=== PATIENT | male | born 1985 | race Two or more races ===

== ENCOUNTER 2024-04-23 09:08 | Inpatient (IN) | payer OTHER ==
[~2024-04-23] VITALS: Ht 177.8 cm; Wt 86.2 kg
--- NOTE | 2024-04-23 09:16 | NUR ---
SE RECIBE MASCULINO ALERTA Y ORIENTADO X3 EN AMBULANCIA. PARAMEDICOS REFIEREN FUERON ACTIVADOS DEBIDO A QUE PACIENTE ESTABA "DESORIENTADO" Y "SUDOROSO". AL MOMENTO PACIENTE VOMITANDO. SE MIDEN S/V Y SE UBICA.
[2024-04-23] MEDS ORDERED: 0.9 % SODIUM CHLORIDE 1,000 ML IV STA (09:30)
[2024-04-23] MEDS ORDERED: FAMOtidine 10 MG/ML (4ML VIAL) IV STA (09:30)
[2024-04-23] MEDS ORDERED: ONDANSETRON HCL 2 MG/ML VIAL IV ONE ×2 (09:30→17:30)
--- NOTE | 2024-04-23 09:59 | NUR ---
SE RECIBE PTE ALERTA ORIENTADA X3.SE EDGAR MUESTRAS DE LABORATORIO USANDO MEDIDAS ASEPTICAS.SE ADMINISTRAN MEDICAMENTOS GAVI ORDEN MEDICA.SE ORIENTA PTE SOBRE OBJETIVO DE [place] MEDICO.PTE MANEJADA POR SIMONA BRUCE.
[2024-04-23 10:09] LABS: HEMOGLOBIN 14.7 g/dL (13-16.00); MEAN CELL VOLUME 91.2 fL (80.0-100.00); MEAN CORPUSCULAR HEMOGLOBIN 31.1 pg (27.00-32.0); MEAN CORPUSCULAR HGB CONC 34.1 g/dl (32.0-36.0); PLATELET COUNT 227 K/uL (150-450); RED BLOOD COUNT 4.72 M/uL (4.00-6.00); RED CELL DISTRIBUTION WIDTH 13.7 % (11.5-14.5)
[2024-04-23 10:30] LABS: ALBUMIN 4.3 gm/dL (3.4-5.0); BILIRUBIN TOTAL 0.44 mg/dL (0.3-1.2); BILIRUBIN,CONJUGATED 0.14 mg/dL (0.0-0.2); BILIRUBIN,UNCONJUGATED 0.3 mg/dL (0.0-0.6); CALCIUM 8.7 mg/dL (8.5-10.1); CREATININE SERUM 0.94 mg/dL (0.70-1.30); GFR 89.34; POTASSIUM 3.36 mEq/L (3.5-5.1); TOTAL PROTEIN 7.4 gm/dL (6.4-8.2)
[2024-04-23] MEDS ORDERED: PROMETHAZINE HCL 50 MG/ML AMPUL IM ONE (11:00)
--- NOTE | 2024-04-23 13:40 | NUR ---
SE RECIBE PTE DESDE EL AREA DE OBSERVACION INCONCIENTE,CON RESPIRACIONES ABDOMINALES Y CIANOSIS EN SUKHI Y BOCA,SECRESIONES,SE CONECTA A MONITOR CARDIACO Y OXIMETRIA,SE SUCCIONA,SE LE CANALIZA Y SE ADMINISTRAN MEDICAMENTOS GAVI ORDEN MEDICA.SE INSERTA LYCNH,ORINA CON SEDIMENTACION.PTE REACCIONA LUEGO DE ADMINISTRAR NARCAN.SE COLOCA CANULA NASAL @ 3LTS.SE RESTRINGE X4,PTE COMBATIVO Y DESORIENTADO.PENDIENTE A REALIZARSE CT.
[2024-04-23] MEDS ORDERED: NALOXONE HCL 0.4 MG/ML AMPUL IV STA (13:47)
[2024-04-23] MEDS ORDERED: FLUMAZENIL 0.5 MG/5 ML ML IV STA (13:47)
[2024-04-23] MEDS ORDERED: LORazepam 2 MG/ML VIAL IV STA (13:48)
[2024-04-23 13:51] LABS: URINE APPEARANCE Turbid; URINE BILIRRUBIN Negative (NEGATIVE); URINE BLOOD Negative; URINE COLOR Yellow; URINE GLUCOSE Negative (NEGATIVE); URINE KETONE 15 (NEGATIVE); URINE LEUKOCYTE Negative; URINE NITRATE Negative; URINE PROTEIN Trace (NEGATIVE); URINE UROBILINOGEN 0.2 E.U./dl
[2024-04-23 13:54] LABS: URINE BACTERIA 64.2 uL (0.0-1933); URINE EPITHELIAL CELLS 2.7 uL (0.0-38.8); URINE WBC 7.4 uL (0.0-23.2)
[2024-04-23 14:13] LABS: ABG PH 7.291 (7.35-7.45); ABG PO2 123.1 mmHg (80-100); ABG pCO2 35.5 mmHg (35-45); BASE EXCESS -8.9 mmol/l; BICARBONATE 16.8 mmol/l (23-25); SaO2 98.1 %; Tco2 17.8 mmol/l
[2024-04-23 14:14] LABS: allen test SATISFACTORY; o2 32 %; puncture site RADIAL RIGHT
[2024-04-23 14:34] LABS: URINE CAST 0.45 uL (0.0-1.40); URINE CRYSTALS MANY /HPF
[2024-04-23 14:57] LABS: COCAINE NEGATIVE (NEGATIVE); METHADONE NEGATIVE (NEGATIVE); OPIATES NEGATIVE (NEGATIVE); THC ( Cannabinoids) POSITIVE (NEGATIVE)
--- NOTE | 2024-04-23 15:05 | NUR ---
SE RECIBE PTE LETARIGO/DESORIENTADO EN CAMA #18 DE UNIDAD DE CHEST PAIN. PTE CONECTADO A MONITOR CARDIACO CON OXIMETRIA CONTINUA. PTE CON H/L X2 COLOCADOS LIBRES DE EDEMA CON 0.9NSS BAJANDO A 100ML/HR. PTE CON CN A 3LTS COLOCADA, SE OBSERVA PTE RESTRINGUIDO X4. PTE SE OBSERVA INQUIETO EN CAMA. PTE CON LYNCH COLOCADO BAJANDO A GRAVEDAD. SE MIDEN S/V A PTE Y SE DOCUMENTAN. PTE AL MOMENTO SE ENCUENTRA SOLO EN JUNE DE EMERGENCIA. PTE CON ESTUDIO DE CT PENDIENTE A REALIZAR. PTE SE CONTINUA MONITORIANDO POR CAMBIOS.
[2024-04-23] MEDS ORDERED: 0.9 % SODIUM CHLORIDE 1,000 ML IV SCH (17:00)
[2024-04-23] MEDS ORDERED: CEFTRIAXONE SODIUM 2,000 MG in 0.9 % SODIUM CHLORIDE 100 ML IV SCH (17:02)
[2024-04-23] MEDS ORDERED: ACETAMINOPHEN 500 MG GEL..CAP PO PRN (17:15)
[2024-04-23] MEDS ORDERED: ONDANSETRON HCL 4 MG in 0.9 % SODIUM CHLORIDE 50 ML IV PRN (17:30)
[2024-04-23] MEDS ORDERED: POTASSIUM CHLORIDE 20MEQ/100ML H2O PB IV ONE (17:30)
[2024-04-23 19:36] LABS: ABG PH 7.418 (7.35-7.45); ABG PO2 83.6 mmHg (80-100); ABG pCO2 31.6 mmHg (35-45); BASE EXCESS -3.4 mmol/l; SaO2 96.3 %; allen test SATISFACTORY; o2 21 %; puncture site RADIAL LEFT
[2024-04-23 20:18] LABS: INR 1.05; PARTIAL THROMBOPLASTIN TIME 28.2 SECONDS (22.0-34.0); PROTHROMBIN TIME 11.4 SECONDS (9.0-11.5)
[2024-04-23 20:29] LABS: MAGNESIUM 2.1 mg/dL (1.8-2.4)
[2024-04-23 20:35] VITALS: BP 120/57; O2SAT 99
[2024-04-23 20:38] LABS: PHOSPHOROUS 1.9 mg/dL (2.5-4.9)
[2024-04-23] MEDS ORDERED: LevETIRAcetam 500 MG/5 ML VIAL IV SCH (21:00)
[2024-04-23 23:00] VITALS: BP 97/43; O2SAT 97
[2024-04-24 02:00] VITALS: BP 112/50; O2SAT 98
[2024-04-24 05:00] VITALS: BP 118/62; O2SAT 97
[2024-04-24 07:27] VITALS: BP 123/64; O2SAT 98
[2024-04-24] MEDS ORDERED: FAMOTIDINE/PF 20 MG in 0.9 % SODIUM CHLORIDE 8 ML IV PUSH SCH (09:00)
[2024-04-24 13:13] VITALS: BP 120/66; O2SAT 98
[2024-04-24 13:39] LABS: ALBUMIN 3.7 gm/dL (3.4-5.0); BILIRUBIN TOTAL 0.49 mg/dL (0.3-1.2); CALCIUM 8.2 mg/dL (8.5-10.1); CREATININE SERUM 0.86 mg/dL (0.70-1.30); GLOBULINA 2.9 G/DL (2.4-3.5); POTASSIUM 3.49 mEq/L (3.5-5.1); TOTAL PROTEIN 6.6 gm/dL (6.4-8.2)
[2024-04-24 13:52] LABS: PHOSPHOROUS 1.9 mg/dL (2.5-4.9)
[2024-04-24 16:30] VITALS: BP 115/65; O2SAT 100
[2024-04-24] MEDS ORDERED: NAPH,MB-DB/K PH,MBDB 1 PKT PACKET PO SCH (17:00)
[2024-04-24 19:27] VITALS: BP 144/85; O2SAT 100
[2024-04-25 01:40] VITALS: BP 131/76; O2SAT 98
[2024-04-25 08:13] VITALS: BP 138/74; O2SAT 97
[2024-04-25 16:56] VITALS: BP 160/85; O2SAT 97
[2024-04-26 01:57] VITALS: BP 129/77; O2SAT 99
[2024-04-26 06:30] LABS: HEMATOCRIT 38.1 % (39.0-48.0); HEMOGLOBIN 13.1 g/dL (13-16.00); MEAN CELL VOLUME 91.3 fL (80.0-100.00); MEAN CORPUSCULAR HEMOGLOBIN 31.4 pg (27.00-32.0); MEAN CORPUSCULAR HGB CONC 34.3 g/dl (32.0-36.0); PLATELET COUNT 139 K/uL (150-450); RED BLOOD COUNT 4.17 M/uL (4.00-6.00); RED CELL DISTRIBUTION WIDTH 13.1 % (11.5-14.5)
[2024-04-26 07:06] LABS: ALBUMIN 3.4 gm/dL (3.4-5.0); BILIRUBIN TOTAL 0.85 mg/dL (0.3-1.2); CALCIUM 8.2 mg/dL (8.5-10.1); CREATININE SERUM 0.8 mg/dL (0.70-1.30); GFR 107.62; GLOBULINA 2.5 G/DL (2.4-3.5); POTASSIUM 3.75 mEq/L (3.5-5.1); TOTAL PROTEIN 5.9 gm/dL (6.4-8.2)
[2024-04-26 08:00] VITALS: BP 157/88; O2SAT 97
== END 2024-04-26 18:54 | disposition home or self-care (01) | DRG 92 ==
LOC: ER 09:08 → ICU-2 17:31 → SEC-K 17:31 → ICU-2 22:27 → MEDI 04-24 18:14
PROVIDERS: General Practice; ADMIT Internal Medicine; ATTEND Internal Medicine
PROC: B020ZZZ Computerized Tomography (CT Scan) of Brain (ICD-10-PCS; principal; 2024-04-23)
PROC: B030ZZZ Magnetic Resonance Imaging (MRI) of Brain (ICD-10-PCS; 2024-04-23)
PROC: 4A12X4Z Monitoring of Cardiac Electrical Activity, External Approach (ICD-10-PCS; 2024-04-23)
DX: G92.8 Other toxic encephalopathy (principal); G40.89 Other seizures; F12.929 Cannabis use, unspecified with intoxication, unspecified; F10.929 Alcohol use, unspecified with intoxication, unspecified; E87.6 Hypokalemia; Y90.9 Presence of alcohol in blood, level not specified; Z78.1 Physical restraint status
CPT/HCPCS: 70544